=== PATIENT | female | born 2005 | race Caucasian/White ===

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

== ENCOUNTER 2025-01-15 11:09 | Emergency (ER) | payer SELFPAY | END 2025-01-15 12:15 | disposition home or self-care (01) | LOC: JD.ED 11:09 | DX: Z32.02 Encounter for pregnancy test, result negative (principal) | CPT/HCPCS: 81025; 99282; 99283 ==

== ENCOUNTER 2025-03-03 16:04 | Emergency (ER) | payer MEDICAID ==
[2025-03-03 17:36] LABS: BASOPHILS ABSOLUTE AUTO 0.0 K/mm3 (0.0-0.3); BASOPHILS PERCENT AUTO 0.3 % (0.0-1.0); EOSINOPHILS ABSOLUTE AUTO 0.0 K/mm3 (0.0-0.7); EOSINOPHILS PERCENT AUTO 0.4 % (0.0-5.0); IMMATURE GRAN ABSOLUTE AUTO 0.01 K/mm3 (0.00-0.05); IMMATURE GRAN PERCENT AUTO 0.1 % (0.0-0.4); LYMPHOCYTES ABSOLUTE AUTO 2.2 K/mm3 (2.0-8.8); LYMPHOCYTES PERCENT AUTO 30.2 % (50.0-65.0); MEAN PLATELET VOLUME 10.2 fl (9.4-12.3); MONOCYTES ABSOLUTE AUTO 0.5 K/mm3 (0.1-1.4); MONOCYTES PERCENT AUTO 7.3 % (2.0-10.0); NEUTROPHILS ABSOLUTE AUTO 4.6 K/mm3 (1.5-8.5); NEUTROPHILS PERCENT AUTO 61.7 % (35.0-45.0); NRBC ABSOLUTE 0.00 (0.00-0.03); NRBC PERCENT 0.0 % (0.0-0.2); PLATELET COUNT,PLT 225 K/mm3 (150-400); RED BLOOD CELL COUNT 4.10 M/mm3 (4.10-5.30); WHITE BLOOD CELL COUNT,WBC 7.39 K/mm3 (4.5-13.5)
[2025-03-03 18:23] LABS: A/G RATIO 1.3 (1-2); ALANINE AMINOTRANSFERASE,ALT 17 U/L (14-59); ASPARTATE AMNIOTRANSFERASE,AST 14 U/L (15-37); BILIRUBIN TOTAL 0.4 mg/dL (0.2-1.0); BLOOD UREA NITROGEN,BUN 6 mg/dL (7-18); CARBON DIOXIDE,CO2 25 mEq/L (21-32); CHLORIDE,CL 106 mEq/L (98-107); CREATININE 0.7 mg/dL (0.55-1.02); EST CRCL DRUG DOSING (CG) 110.81 mL/min; ESTIMATED GFR 128 mL/min (>60); GLUCOSE RANDOM 67 mg/dL (70-99); HCG QUANTITATIVE 3588.0 mIU/mL; POTASSIUM,K 3.6 mEq/L (3.5-5.1); PROTEIN TOTAL,TP 6.8 g/dl (6.4-8.2); SODIUM,NA 139 mEq/L (136-145)
== END 2025-03-03 18:18 | disposition left against medical advice (07) ==
LOC: JD.ED 16:04
DX: R10.32 Left lower quadrant pain (principal); Z53.29 Procedure and treatment not carried out because of patient's decision for other reasons
CPT/HCPCS: 36415; 76817; 76817-26; 80053; 84702; 85025; 86140; 99283; 99284